=== PATIENT | female | born 1945 | race Native Hawaiian/Other Pacific Islander ===

== ENCOUNTER → 2022-08-04 | Emergency (ER) | payer OTHER ==
[~2022-08-04] VITALS: Ht 162.6 cm; Wt 63.5 kg
[2022-08-04 02:44] LABS: PLATELET COUNT 311 K/uL (152-353)
[2022-08-04 02:52] LABS: POTASSIUM 2.9 mmol/L (3.6-5.2)
[2022-08-04 02:55] LABS: PARTIAL THROMBOPLASTIN TIME 24.6 SECONDS (24.5-33.6)
[2022-08-04 09:40] VITALS: BP 144/82; TEMP 100
== END ==
LOC: ED 02:17
PROVIDERS: Emergency Medicine
DX: E87.6 Hypokalemia (principal); E86.0 Dehydration; Z20.822 Contact with and (suspected) exposure to COVID-19
CPT/HCPCS: 36415; 36600; 80053; 80307; 81002; 82805; 83880; 84484; 85008; 85027; 85379; 85610; 85730; 87502; 87635; 93005; 96360; 99284; Q9963; U0003

== ENCOUNTER 2023-05-07 10:22 | Emergency (ER) | payer OTHER ==
[~2023-05-07] VITALS: Ht 170.2 cm; Wt 72.6 kg
[~2023-05-07 10:22] MED LIST: ALUMSUS6 PO; AZIT250T3 PO; PANTOPRAZOLE 40MG TA PO
[2023-05-07 10:49] VITALS: BP 14/74; TEMP 97.8
== END 2023-05-07 11:26 | disposition home or self-care (01) ==
LOC: ED 10:22
DX: Z53.21 Procedure and treatment not carried out due to patient leaving prior to being seen by health care provider (principal)

== ENCOUNTER 2023-06-04 16:54 | Emergency (ER) | payer OTHER ==
[~2023-06-04] VITALS: Ht 170.2 cm; Wt 74.8 kg
[2023-06-04 16:55] VITALS: TEMP 97.2
[2023-06-04 17:44] LABS: PLATELET COUNT 439 K/uL (152-353)
[2023-06-04 22:00] VITALS: BP 149/92
== END 2023-06-04 22:00 | disposition home or self-care (01) ==
LOC: ED 16:54
PROVIDERS: Family Medicine
DX: R07.89 Other chest pain (principal); F41.9 Anxiety disorder, unspecified; K21.9 Gastro-esophageal reflux disease without esophagitis
CPT/HCPCS: 36415; 80053; 84484; 85027; 93005; 99283